=== PATIENT | male | born 1940 | race Caucasian/White ===

== ENCOUNTER → 2016-10-30 | Outpatient (CLI) | payer OTHER ==
[2016-10-30 08:31] LABS: BASOPHILS # (AUTO) 0.1 X10^3/uL (0.0-0.1); BASOPHILS % (AUTO) 1.1 % (0.2-1.0); EOSINOPHILS # (AUTO) 0.2 x10^3/uL (0.0-0.2); EOSINOPHILS % (AUTO) 3.3 % (0.9-2.9); HEMATOCRIT 40.9 % (42.0-54.0); LYMPHOCYTES # (AUTO) 0.9 X10^3/uL (1.3-2.9); MEAN CORPUSCULAR HEMOGLOBIN 32.1 pg (27.0-34.0); MEAN CORPUSCULAR HGB CONC 34.1 g/dL (33.0-35.0); MEAN CORPUSCULAR VOLUME 94.1 fL (80.0-100.0); MEAN PLATELET VOLUME 8.6 fL (7.4-11.0); MONOCYTES # (AUTO) 0.3 x10^3/uL (0.3-0.8); MONOCYTES % (AUTO) 5.3 % (0.0-13.0); NEUTROPHILS % (AUTO) 76.3 % (42.0-75.0); PLATELET COUNT 187 X10^3/uL (150.0-450.0); RED BLOOD COUNT 4.35 X10^6/uL (4.7-6.0); RED CELL DISTRIBUTION WIDTH 13.9 % (11.6-16.5); WHITE BLOOD COUNT 6.6 X10^3/uL (3.6-10.0)
[2016-10-30 08:33] LABS: ALBUMIN 3.3 g/dL (3.4-5.0); BLOOD UREA NITROGEN 42 mg/dL (7-18); CALCIUM 9.6 mg/dL (8.5-10.1); CARBON DIOXIDE 27.2 mmol/L (21-32); CHLORIDE 107 mmol/L (98-107); CHOL/HDL RATIO 4.8 (0.0-5.0); CHOLESTEROL 164 mg/dL (0-200); COR CA(FOR HYPOALB) 10.2 mg/dL (8.5-10.1); COR NA(FOR HYPERGLY) 146 mmol/L (136-145); CREATININE 2.24 mg/dL (0.70-1.30); GLUCOSE 132 mg/dL (65-99); HDL CHOLESTEROL 34 mg/dL (40-60); PHOSPHORUS 3.6 mg/dL (2.6-4.7); SODIUM 145 mmol/L (136-145); TRIGLYCERIDES 128 mg/dL (0-150); eGFR BLACK RACES 37 (>60); eGFR NON BLACK RACES 30 (>60)
[2016-10-30 09:05] LABS: TOTAL PSA < 0.13 ng/mL (0.13-4.0)
== END ==
LOC: LAB 07:51
PROVIDERS: ATTEND Internal Medicine
DX: I12.9 Hypertensive chronic kidney disease with stage 1 through stage 4 chronic kidney disease, or unspecified chronic kidney disease (principal); N18.3 Chronic kidney disease, stage 3 (moderate); C61 Malignant neoplasm of prostate
CPT/HCPCS: 36415; 80061; 80069; 84153; 84550; 85025

== ENCOUNTER → 2017-01-29 | Outpatient (CLI) | payer OTHER ==
[2017-01-29 09:18] LABS: BASOPHILS # (AUTO) 0.1 X10^3/uL (0.0-0.1); EOSINOPHILS # (AUTO) 0.2 x10^3/uL (0.0-0.2); EOSINOPHILS % (AUTO) 2.4 % (0.9-2.9); HEMATOCRIT 39.4 % (42.0-54.0); HEMOGLOBIN 13.8 g/dL (13.5-18.0); MEAN CORPUSCULAR HEMOGLOBIN 32.8 pg (27.0-34.0); MEAN CORPUSCULAR HGB CONC 34.9 g/dL (33.0-35.0); MEAN CORPUSCULAR VOLUME 93.9 fL (80.0-100.0); MEAN PLATELET VOLUME 8.5 fL (7.4-11.0); MONOCYTES # (AUTO) 0.5 x10^3/uL (0.3-0.8); MONOCYTES % (AUTO) 6.8 % (0.0-13.0); NEUTROPHILS # (AUTO) 5.9 x10^3/uL (2.2-4.8); NEUTROPHILS % (AUTO) 76.8 % (42.0-75.0); PLATELET COUNT 189 X10^3/uL (150.0-450.0); RED CELL DISTRIBUTION WIDTH 14.4 % (11.6-16.5); WHITE BLOOD COUNT 7.6 X10^3/uL (3.6-10.0)
[2017-01-29 09:32] LABS: ALBUMIN 3.3 g/dL (3.4-5.0); CALCIUM 9.3 mg/dL (8.5-10.1); CARBON DIOXIDE 28.8 mmol/L (21-32); CHOL/HDL RATIO 4.2 (0.0-5.0); COR CA(FOR HYPOALB) 9.9 mg/dL (8.5-10.1); CREATININE 2.37 mg/dL (0.70-1.30); PHOSPHORUS 3.3 mg/dL (2.6-4.7)
[2017-01-29 09:45] LABS: HEMOGLOBIN A1C 5.1 % (4.5-6.2)
== END ==
LOC: LAB 08:17
PROVIDERS: ATTEND Internal Medicine
DX: I12.9 Hypertensive chronic kidney disease with stage 1 through stage 4 chronic kidney disease, or unspecified chronic kidney disease (principal); N18.3 Chronic kidney disease, stage 3 (moderate); E11.29 Type 2 diabetes mellitus with other diabetic kidney complication
CPT/HCPCS: 36415; 80061; 80069; 83036; 85025

== ENCOUNTER 2017-02-06 15:44 | Emergency (ER) | payer OTHER ==
[2017-02-06 15:51] VITALS: BMI 39.9
--- NOTE | 2017-02-06 16:44 | DR.HTN ---
HPI - Time Seen Time seen: 16:40 - Primary Care Physician Primary Care Physician: URBAN MEYERS - Complaints Chief Complaint:: PT C/O HIS BP INCREASING AND HAVING VISION PROBLEMS AND FEELING SWIMMING HEADED,, AND BEING A LITTLE DIZZY .. AND PT IS HAVING PRESSURE TO HIS HEAD ALL OVER NO PAIN .. - Reviewed Nurses Notes Reviewed: Yes - Source History Provided: Patient - Mode of Arrival Mode of Arrival: Ambulatory - Timing Onset of Chief Complaint: 02/04/17 - Severity What was the maximum recorded B/P?: 157/89 Severity: Mild - Context Circumstances: Spontaneous Onset Treatment of HTN Prior to Arrival: Taking meds as prescribed - Associated Signs and Symptoms HTN Associated Signs and Symptoms: Dizziness, Blurred Vision PMH - PMH Past Medical History: Yes Past Medical History Comment: PROSTATE CA,, SKIN CA , renal failure Past Surgical History: Yes Surgical History: Appendectomy, Ortho Surgery, Lithotripsy Past Surgical History Comment: LEFT HIP REPLACEMENT - Family History History of Family Medical Conditions: Yes Family Medical History Comment: CHF, - Social History Does patient currently use any type of tobacco product: No Have you used tobacco products in the last 12 months: No Type of Tobacco Use: None Does any household member use tobacco: No Alcohol Use: None Lives With: Alone Lives Where: Home - infectious screening In the last 2 months have you had wt loss of >10#?: NO Have you had fever, night sweats or hemotysis?: No Have you traveled outside the country in the last 6 months?: No Isolation: Standard ROS - Review of Systems Constitutional: No Symptoms Reported Eyes: Blurred Vision ENTM: No Symptoms Reported Respiratoy: No Symptoms Reported Cardiovascular: No Symptoms Reported Gastrointestinal/Abdominal: No Symptoms Reported Genitourinary: No Symptoms Reported Neurological: Dizziness Musculoskeletal: No Symptoms Reported Integumentary: No Symptoms Reported Hematologic/Lymphatic: No Symptoms Reported Endocrine: No Symptoms Reported Psychiatric: No Symptoms Reported All Other Systems: Reviewed and Negative PE - Vital Signs Vitals: Temperature 98.2 F Pulse Rate [Left Brachial] 74 Pulse Rate 89 Respiratory Rate 20 Blood Pressure [Left Arm] 131/68 Blood Pressure 164/90 O2 Sat by Pulse Oximetry 97 - General Limitations: No Limitations General Appearance: Alert, In No Apparent Distress - Head Head Exam: Normal Inspection - Eyes Eye exam: Normal Appearance, EOMI. negative: Scleral Icterus, Conjunctival Injection Sclera/Conjunctival: Normal Inspection: Bilateral - ENT ENT Exam: Normal Exam - Neck Neck Exam: Normal Inspection - Chest Chest Inspection: Normal Inspection - Respiratory Respiratory Exam: Bilateral Clear to Auscultation - Cardiovascular Cardiovascular Exam: Regular Rate - Abdominal Exam Abdominal Exam: Normal Inspection, Soft. negative: Distention, Tenderness, Guarding - Extremities Extremities Exam: Normal Inspection, Full ROM - Back Back Exam: Normal Inspection, Full ROM - Neurologic Neurological Exam: Alert, Oriented X3, CN II-XII Intact Speech: Fluid Speech - Psychiatric Psychiatric Exam: Depressed - Skin Skin Exam: Intact, Normal Color ROR - Labs Reviewed Result Diagrams: 02/06/17 16:52 02/06/17 16:52 Laboratory: WBC 7.9 X10^3/uL (3.6-10.0) 02/06/17 16:52 RBC 4.29 X10^6/uL (4.7-6.0) L 02/06/17 16:52 Hgb 14.2 g/dL (13.5-18.0) 02/06/17 16:52 Hct 40.1 % (42.0-54.0) L 02/06/17 16:52 MCV 93.4 fL (80.0-100.0) 02/06/17 16:52 MCH 33.0 pg (27.0-34.0) 02/06/17 16:52 MCHC 35.3 g/dL (33.0-35.0) H 02/06/17 16:52 RDW 13.9 % (11.6-16.5) 02/06/17 16:52 Plt Count 201 X10^3/uL (150.0-450.0) 02/06/17 16:52 MPV 8.6 fL (7.4-11.0) 02/06/17 16:52 Neut % 73.0 % (42.0-75.0) 02/06/17 16:52 Lymph % 16.4 % (21.0-51.0) L 02/06/17 16:52 Mccracken % 7.0 % (0.0-13.0) 02/06/17 16:52 Eos % 2.3 % (0.9-2.9) 02/06/17 16:52 Baso % 1.3 % (0.2-1.0) H 02/06/17 16:52 Neut # 5.8 x10^3/uL (2.2-4.8) H 02/06/17 16:52 Lymph # 1.3 X10^3/uL (1.3-2.9) 02/06/17 16:52 Mccracken # 0.6 x10^3/uL (0.3-0.8) 02/06/17 16:52 Eos # 0.2 x10^3/uL (0.0-0.2) 02/06/17 16:52 Baso # 0.1 X10^3/uL (0.0-0.1) 02/06/17 16:52 Absolute Nucleated RBC 0.0 /100WBC 02/06/17 16:52 Sodium 140 mmol/L (136-145) 02/06/17 16:52 Corrected Sodium TNP 02/06/17 16:52 Potassium 3.8 mmol/L (3.5-5.1) 02/06/17 16:52 Chloride 102 mmol/L (98-107) 02/06/17 16:52 Carbon Dioxide 27.6 mmol/L (21-32) 02/06/17 16:52 BUN 50 mg/dL (7-18) H 02/06/17 16:52 Creatinine 2.49 mg/dL (0.70-1.30) H 02/06/17 16:52 Est GFR (MDRD) Af Amer 32 (>60) L 02/06/17 16:52 Est GFR (MDRD) Non-Af 27 (>60) L 02/06/17 16:52 Glucose 107 mg/dL (65-99) H 02/06/17 16:52 Calcium 9.2 mg/dL (8.5-10.1) 02/06/17 16:52 - XRAY XRAY Interpreted by: Radiologist XRAY Findings: ct HEAD: SINUSITUS CHRONIC - Diagnosis Discharge Problem: Hypertension Qualifiers: Hypertension type: renovascular hypertension Qualified Code(s): I15.0 - Renovascular hypertension - Discharge Plan Condition: Stable Prescriptions: Clonidine HCl [Catapres Tab 0.1 mg] 0.1 mg PO 20 #20 tab - Follow ups/Referrals Follow ups/Referrals: [facility],None [Primary Care Provider] - 3 days - Instructions Instructions: Hypertension, [id number]
[2017-02-06 17:09] LABS: BASOPHILS # (AUTO) 0.1 X10^3/uL (0.0-0.1); BASOPHILS % (AUTO) 1.3 % (0.2-1.0); EOSINOPHILS # (AUTO) 0.2 x10^3/uL (0.0-0.2); EOSINOPHILS % (AUTO) 2.3 % (0.9-2.9); HEMATOCRIT 40.1 % (42.0-54.0); HEMOGLOBIN 14.2 g/dL (13.5-18.0); LYMPHOCYTES # (AUTO) 1.3 X10^3/uL (1.3-2.9); LYMPHOCYTES % (AUTO) 16.4 % (21.0-51.0); MEAN CORPUSCULAR HGB CONC 35.3 g/dL (33.0-35.0); MEAN CORPUSCULAR VOLUME 93.4 fL (80.0-100.0); MEAN PLATELET VOLUME 8.6 fL (7.4-11.0); MONOCYTES # (AUTO) 0.6 x10^3/uL (0.3-0.8); NEUTROPHILS # (AUTO) 5.8 x10^3/uL (2.2-4.8); PLATELET COUNT 201 X10^3/uL (150.0-450.0); RED BLOOD COUNT 4.29 X10^6/uL (4.7-6.0); RED CELL DISTRIBUTION WIDTH 13.9 % (11.6-16.5); WHITE BLOOD COUNT 7.9 X10^3/uL (3.6-10.0)
[2017-02-06 17:13] LABS: BLOOD UREA NITROGEN 50 mg/dL (7-18); CALCIUM 9.2 mg/dL (8.5-10.1); CARBON DIOXIDE 27.6 mmol/L (21-32); CHLORIDE 102 mmol/L (98-107); CREATININE 2.49 mg/dL (0.70-1.30); GLUCOSE 107 mg/dL (65-99); SODIUM 140 mmol/L (136-145); eGFR BLACK RACES 32 (>60); eGFR NON BLACK RACES 27 (>60)
--- NOTE | 2017-02-06 17:25 | CT ---
HISTORY: Hypertension and dizziness. Noncontrast head CT examination. Comparison: None. Technique: Multiple axial images of the brain were obtained from the skull base to the vertex without administr ation of IV contrast. Findings: There is moderate sulcal and cisternal prominence as well as atherosclerotic change in the proximal intracranial carotid and vertebral arteries, which is not out of proportion to the patient 's stated age. There is diffuse CT density alteration seen in the periventricular white matter of th e high and mid-convexity, which is likely in the setting of small vessel disease and not out of prop ortion to the patient's stated age. There is mild bilateral ex vacuo ventricular dilatation without evidence for hydrocephalus or herniation syndrome. No midline shift is evident. No acute intraparenc hymal hemorrhage or mass can be identified. No extra-axial fluid collections are seen. No alterati on in the attenuation of the brain parenchyma can be identified to suggest acute or subacute ischemi c change. However, if the patients symptoms are clinically \T\ neurologically concerning for an acu te ischemic event, then MR imaging of the brain with DWI sequencing would likely be beneficial to ex clude an acute CVA. There is chronic maxillary mucoperiosteal thickening and chronic sinus disease. Mastoid ulcer is are clear. IMPRESSION: 1. No acute intracranial process can be identified. 2. Age-appropriate intra-cranial changes of advancing age. 3. CT findings of chronic maxillary sinusitis. Reported By:
[2017-02-06 17:46] VITALS: BP 131/68
== END 2017-02-06 17:58 | disposition home or self-care (01) ==
LOC: ER 16:12
DX: I15.0 Renovascular hypertension (principal)
CPT/HCPCS: 36415; 70450; 80048; 85025; 99282; 99283

== ENCOUNTER → 2017-05-04 | Outpatient (CLI) | payer OTHER ==
[2017-05-04 08:22] LABS: ALBUMIN 3.4 g/dL (3.4-5.0); BLOOD UREA NITROGEN 39 mg/dL (7-18); CALCIUM 10.2 mg/dL (8.5-10.1); CHLORIDE 106 mmol/L (98-107); CHOL/HDL RATIO 3.6 (0.0-5.0); CHOLESTEROL 148 mg/dL (0-200); COR NA(FOR HYPERGLY) 142 mmol/L (136-145); CREATININE 2.32 mg/dL (0.70-1.30); HDL CHOLESTEROL 41 mg/dL (40-60); PHOSPHORUS 3.2 mg/dL (2.6-4.7); SODIUM 142 mmol/L (136-145); TRIGLYCERIDES 93 mg/dL (0-150); URIC ACID 8.1 mg/dL (3.5-7.2); eGFR BLACK RACES 35 (>60); eGFR NON BLACK RACES 29 (>60)
[2017-05-04 08:28] LABS: BASOPHILS # (AUTO) 0.1 X10^3/uL (0.0-0.1); BASOPHILS % (AUTO) 0.9 % (0.2-1.0); EOSINOPHILS # (AUTO) 0.7 x10^3/uL (0.0-0.2); HEMATOCRIT 40.6 % (42.0-54.0); HEMOGLOBIN 13.9 g/dL (13.5-18.0); LYMPHOCYTES # (AUTO) 0.9 X10^3/uL (1.3-2.9); LYMPHOCYTES % (AUTO) 15.9 % (21.0-51.0); MEAN CORPUSCULAR HEMOGLOBIN 31.7 pg (27.0-34.0); MEAN CORPUSCULAR HGB CONC 34.1 g/dL (33.0-35.0); MEAN PLATELET VOLUME 8.7 fL (7.4-11.0); MONOCYTES # (AUTO) 0.3 x10^3/uL (0.3-0.8); MONOCYTES % (AUTO) 5.5 % (0.0-13.0); NEUTROPHILS % (AUTO) 66.7 % (42.0-75.0); PLATELET COUNT 205 X10^3/uL (150.0-450.0); RED BLOOD COUNT 4.37 X10^6/uL (4.7-6.0); WHITE BLOOD COUNT 5.9 X10^3/uL (3.6-10.0)
== END ==
LOC: LAB 07:39
PROVIDERS: ATTEND Internal Medicine
DX: I12.9 Hypertensive chronic kidney disease with stage 1 through stage 4 chronic kidney disease, or unspecified chronic kidney disease (principal); N18.4 Chronic kidney disease, stage 4 (severe)
CPT/HCPCS: 36415; 80061; 80069; 84550; 85025

== ENCOUNTER → 2017-07-27 | Outpatient (CLI) | payer OTHER ==
[2017-07-27 07:59] LABS: BASOPHILS # (AUTO) 0.1 X10^3/uL (0.0-0.1); BASOPHILS % (AUTO) 1.1 % (0.2-1.0); EOSINOPHILS # (AUTO) 0.3 x10^3/uL (0.0-0.2); EOSINOPHILS % (AUTO) 4.4 % (0.9-2.9); HEMATOCRIT 40.5 % (42.0-54.0); LYMPHOCYTES # (AUTO) 1.2 X10^3/uL (1.3-2.9); LYMPHOCYTES % (AUTO) 18.4 % (21.0-51.0); MEAN CORPUSCULAR HEMOGLOBIN 31.8 pg (27.0-34.0); MEAN CORPUSCULAR HGB CONC 34.4 g/dL (33.0-35.0); MEAN CORPUSCULAR VOLUME 92.4 fL (80.0-100.0); MEAN PLATELET VOLUME 8.6 fL (7.4-11.0); MONOCYTES # (AUTO) 0.4 x10^3/uL (0.3-0.8); MONOCYTES % (AUTO) 6.6 % (0.0-13.0); NEUTROPHILS # (AUTO) 4.4 x10^3/uL (2.2-4.8); NEUTROPHILS % (AUTO) 69.5 % (42.0-75.0); PLATELET COUNT 208 X10^3/uL (150.0-450.0); RED BLOOD COUNT 4.39 X10^6/uL (4.7-6.0); RED CELL DISTRIBUTION WIDTH 13.5 % (11.6-16.5); WHITE BLOOD COUNT 6.3 X10^3/uL (3.6-10.0)
[2017-07-27 08:07] LABS: ALBUMIN 3.4 g/dL (3.4-5.0); BLOOD UREA NITROGEN 47 mg/dL (7-18); CALCIUM 9.8 mg/dL (8.5-10.1); CARBON DIOXIDE 28.8 mmol/L (21-32); CHLORIDE 107 mmol/L (98-107); CHOL/HDL RATIO 4.3 (0.0-5.0); CHOLESTEROL 165 mg/dL (0-200); COR NA(FOR HYPERGLY) 142 mmol/L (136-145); CREATININE 2.34 mg/dL (0.70-1.30); HDL CHOLESTEROL 38 mg/dL (40-60); HEMOGLOBIN A1C 5.5 %; PHOSPHORUS 3.4 mg/dL (2.6-4.7); SODIUM 142 mmol/L (136-145); TRIGLYCERIDES 98 mg/dL (0-150); URIC ACID 7.9 mg/dL (3.5-7.2); eGFR BLACK RACES 35 (>60); eGFR NON BLACK RACES 29 (>60)
== END ==
LOC: LAB 07:35
PROVIDERS: ATTEND Internal Medicine
DX: I12.9 Hypertensive chronic kidney disease with stage 1 through stage 4 chronic kidney disease, or unspecified chronic kidney disease (principal); N18.3 Chronic kidney disease, stage 3 (moderate); E11.29 Type 2 diabetes mellitus with other diabetic kidney complication
CPT/HCPCS: 36415; 80061; 80069; 83036; 84550; 85025

== ENCOUNTER → 2017-10-26 | Outpatient (CLI) | payer OTHER ==
[2017-10-26 09:24] LABS: ALBUMIN 3.2 g/dL (3.4-5.0); CARBON DIOXIDE 25.6 mmol/L (21-32); COR CA(FOR HYPOALB) 9.6 mg/dL (8.5-10.1); CREATININE 2.15 mg/dL (0.70-1.30)
[2017-10-26 09:28] LABS: BASOPHILS # (AUTO) 0.1 X10^3/uL (0.0-0.1); BASOPHILS % (AUTO) 1.1 % (0.2-1.0); EOSINOPHILS # (AUTO) 0.2 x10^3/uL (0.0-0.2); EOSINOPHILS % (AUTO) 3.6 % (0.9-2.9); HEMATOCRIT 36.6 % (42.0-54.0); HEMOGLOBIN 12.6 g/dL (13.5-18.0); LYMPHOCYTES # (AUTO) 0.9 X10^3/uL (1.3-2.9); LYMPHOCYTES % (AUTO) 16.8 % (21.0-51.0); MEAN CORPUSCULAR HEMOGLOBIN 31.7 pg (27.0-34.0); MEAN CORPUSCULAR HGB CONC 34.4 g/dL (33.0-35.0); MONOCYTES # (AUTO) 0.4 x10^3/uL (0.3-0.8); MONOCYTES % (AUTO) 6.6 % (0.0-13.0); NEUTROPHILS # (AUTO) 3.9 x10^3/uL (2.2-4.8); NEUTROPHILS % (AUTO) 71.9 % (42.0-75.0); PLATELET COUNT 166 X10^3/uL (150.0-450.0); RED BLOOD COUNT 3.98 X10^6/uL (4.7-6.0); RED CELL DISTRIBUTION WIDTH 13.7 % (11.6-16.5); WHITE BLOOD COUNT 5.4 X10^3/uL (3.6-10.0)
== END ==
LOC: LAB 08:31
PROVIDERS: ATTEND Internal Medicine Hematology & Oncology
DX: I10 Essential (primary) hypertension (principal); E78.4 Other hyperlipidemia
CPT/HCPCS: 36415; 80069; 85025